=== PATIENT | female | born 1965 | race Caucasian/White ===

== ENCOUNTER 2021-09-12 06:03 | Emergency (ER) | payer MEDICARE ==
[~2021-09-12] VITALS: Ht 154.9 cm; Wt 41.5 kg
[2021-09-12 07:22] LABS: ALANINE AMINOTRANSFERASE 10 U/L (12-78); ALBUMIN 2.7 G/DL (3.4-5.0); ALBUMIN/GLOBULIN RATIO 0.5 (1.1-1.5); ALKALINE PHOSPHATASE 173 IU/L (46-116); ANION GAP 11 (8-16); ASPARTATE AMINO TRANSFERASE 19 U/L (10-37); BASOPHILS # (AUTO) 0.1 X10'3 (0-0.2); BASOPHILS % (AUTO) 0.5 % (0-1); BILIRUBIN,TOTAL 0.4 MG/DL (0.1-1.0); BLOOD UREA NITROGEN 35 MG/DL (7-18); BUN/CREATININE RATIO 33.3 (6.6-38.0); CALCIUM 9.8 MG/DL (8.5-10.1); CHLORIDE 90 MMOL/L (99-107); CREATININE 1.05 MG/DL (0.40-0.90); EOSINOPHILS # (AUTO) 0.1 X10'3 (0-0.9); GLUCOSE 275 MG/DL (70-104); LIPASE 51 U/L (73-393); MONOCYTES # (AUTO) 0.7 X10'3 (0-0.9); POTASSIUM 3.6 MMOL/L (3.5-5.1); RED CELL DISTRIBUTION WIDTH 18.4 % (11.5-14.5); SODIUM 127 MMOL/L (135-145); TOTAL CARBON DIOXIDE 26.2 MMOL/L (24-32); TOTAL PROTEIN 8.2 G/DL (6.4-8.2); eGFR 54 ML/MIN
[2021-09-12 07:24] LABS: EOSINOPHILS % (AUTO) 0.5 % (0-6); HEMATOCRIT 44.8 % (35.0-45.0); HEMOGLOBIN 14.8 g/dl (12.0-16.0); LYMPHOCYTES % (AUTO) 47.4 % (21-51); MEAN CORPUSCULAR HEMOGLOBIN 23.7 PG (27.0-31.0); MEAN CORPUSCULAR HGB CONC 33.1 g/dL (33.0-36.5); MEAN CORPUSCULAR VOLUME 71.6 FL (78-98); MEAN PLATELET VOLUME 7.8 FL (7.4-10.4); MONOCYTES % (AUTO) 4.3 % (2-12); NEUTROPHILS % (AUTO) 47.3 % (42-75); PLATELET COUNT 420 X10'3 (140-440); RED BLOOD COUNT 6.26 X10'6 (4.20-5.60); WHITE BLOOD COUNT 16.8 X10'3 (4.5-11.0)
[2021-09-12] MEDS ORDERED: ondansetron 4mg rapidly disintigrating tab PO ONE (07:55)
--- NOTE | 2021-09-12 08:20 | NUR ---
Pt left for barium swallow study with speech therapy.
[2021-09-12] MEDS ORDERED: normal saline 1000ML IV soln IVB ONE (09:10)
[2021-09-12 09:21] LABS: UA COLLECTION TYPE NON-SPECIFIED
[2021-09-12 09:22] LABS: CLARITY,URINE CLEAR (Clear); COLOR,URINE YELLOW (Yellow); GLUCOSE, URINE NEGATIVE (Neg); KETONES,URINE NEGATIVE (Neg); LEUKOCYTE ESTERASE ,URINE NEGATIVE (Neg); NITRITES, URINE NEGATIVE (Neg); OCCULT BLOOD,URINE NEGATIVE (Neg); PH,URINE 5.5 (4.8-8.0); PROTEIN,URINE 30 mg/dl (Neg); UROBILINOGEN,URINE 0.2 E.U/dL (0.2-1.0)
[2021-09-12 09:29] LABS: WBC,URINE 0-4 /HPF (0-4)
[2021-09-12 09:30] LABS: BACTERIA,URINE NONE SEEN /HPF (Neg); HYALINE CASTS 0-3 /LPF (NEGATIVE); RBC,URINE NONE SEEN /HPF (0-2); SQUAMOUS EPITHELIAL CELL,UR FEW /LPF (FEW)
[2021-09-12 09:36] LABS: URINE AMPHETAMINE SCREEN POSITIVE (Neg); URINE BARBITUATE SCREEN NEGATIVE (Neg); URINE BENZODIAZEPINES SCREEN NEGATIVE (Neg); URINE CANNABINOID SCREEN NEGATIVE (Neg); URINE COCAINE SCREEN NEGATIVE (Neg); URINE METHADONE SCREEN NEGATIVE (Neg); URINE OPIATE SCREEN POSITIVE (Neg); URINE PHENCYCLIDINE SCREEN NEGATIVE (Neg)
[2021-09-12 11:56] LABS: HEMOGLOBIN A1C 9.2 % (4.5-6.2)
--- NOTE | 2021-09-12 12:31 | NUR ---
LEFT FLOOR FOR GI STUDY. PT RESTING COMFORTABLY PRIOR TO THIS.
[2021-09-12 12:40] VITALS: BP 127/90
[2021-09-12] MEDS ORDERED: LIDOcaine Viscous 15ml cup ONE (12:57)
[2021-09-12] MEDS ORDERED: fentaNYL/PF 50MCG/1 ML 2ML syringe ONE (12:57)
[2021-09-12] MEDS ORDERED: MIDAZolam 1 MG/ML 5ML VIAL ONE (12:57)
[2021-09-12 13:45] VITALS: BP 110/70
[2021-09-12] MEDS ORDERED: PANT-47 PO (13:54)
[2021-09-12 13:55] VITALS: BP 111/69
[2021-09-12] MEDS ORDERED: pantoprazole 40 MG vial IV ONE (13:55)
[2021-09-12 14:05] VITALS: BP 110/68
[2021-09-12 14:15] VITALS: BP 103/67
--- NOTE | 2021-09-12 14:37 | NUR ---
pt returned from GI lab. 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
[2021-09-12 15:07] VITALS: BP 118/73
--- NOTE | 2021-09-12 15:23 | NUR ---
pt awake and alert, vital signs stable. pt ambulatory with steady gait out of ed.
[2021-09-12] MEDS ORDERED: pantoprazole 40MG/NS 100ML BAG 100 ML IV SCH (16:00)
== END 2021-09-12 15:26 | disposition home or self-care (01) ==
LOC: ER 06:05
DX: T18.108A Unspecified foreign body in esophagus causing other injury, initial encounter (principal); F17.200 Nicotine dependence, unspecified, uncomplicated; F11.90 Opioid use, unspecified, uncomplicated; Z85.841 Personal history of malignant neoplasm of brain; Z88.8 Allergy status to other drugs, medicaments and biological substances; Z79.899 Other long term (current) drug therapy; X58.XXXA Exposure to other specified factors, initial encounter; Y93.89 Activity, other specified; Y92.89 Other specified places as the place of occurrence of the external cause; Y99.8 Other external cause status
CPT/HCPCS: 36415; 43239; 43247; 43248; 74230; 80053; 80305; 81001; 83036; 83690; 84443; 85025; 92508; 96361; 96365; 99152; 99153; 99285; C1726; C1769; C9113; J2250; J3010; J7030; Z7512; A4620